=== PATIENT | male | born 1930 | race Caucasian/White ===

== ENCOUNTER 2018-02-24 23:25 | Inpatient (IN) | payer OTHER, BC ==
[~2018-02-24] VITALS: Ht 177.8 cm; Wt 96.2 kg
[~2018-02-24 23:25] MED LIST: ASA81BEC PO; AUGMENTIN 875875 MG PO; CENTRUM SILVER1 EAC4 PO; COUMADIN 3 MG TA3 M1 PO; GABAPENTIN 100100 MG PO; HYDROCODONE PO; LIMBREL PO; LOPRESSOR25 PO; METHOCARBAMOL PO; MIRALAX17 GM PO; NITROSTAT0.4 MG SUBLING; PAXIL10 MG; PROSCAR 5MG TABL5 MG PO; PROTONIX40 M4 PO; ROBAXIN 750 MG750 M1 PO; ROXICODONE5 MG PO; SALSALATE 500M500 MG PO; SIMVASTATIN40 MG PO; TAMSULOSIN HCL0.4 MG PO
[2018-02-24 23:36] VITALS: BP 157/85
[2018-02-25] MEDS ORDERED: GABAPENTIN 100100 MG PO (00:08)
[2018-02-25] MEDS ORDERED: COUMADIN 4 MG TA4 M1 PO (00:09)
[2018-02-25] MEDS ORDERED: COUMADIN 3 MG TA3 M1 PO (00:09)
[2018-02-25 00:10] LABS: ABSOLUTE NEUTROPHILS 3.9 thou/uL (1.4-8.2); BASOPHILS 0.4 % (0.0-2.0); HEMATOCRIT 43.2 % (42.0-52.0); HEMOGLOBIN 13.9 gm/dL (14.0-18.0); LYMPHOCYTES 19.6 % (24.0-44.0); MCH 25.5 pg (26.0-34.0); MCHC 32.1 g/dL (28.0-37.0); MCV 79.4 fL (80.0-100.0); PLATELET COUNT 179 thou/uL (150-400); RBC 5.44 mil/uL (4.50-6.00)
[2018-02-25] MEDS ORDERED: OXYCODONE HCL 55 MG PO (00:10)
[2018-02-25 00:13] LABS: ANION GAP 9 mmol/L (7-16); BUN 18 mg/dL (7-18); CALCIUM 9.3 mg/dL (8.5-10.1); CHLORIDE 105 mmol/L (98-107); CO2 25 mmol/L (21-32); CREATININE 1.2 mg/dL (0.7-1.3); GLUCOSE 108 mg/dL (74-106); POTASSIUM 3.7 mmol/L (3.5-5.1); SODIUM 139 mmol/L (136-145)
[2018-02-25 00:21] LABS: TROPONIN-I <0.06 ng/mL (<0.06)
[2018-02-25 02:39] VITALS: BP 135/89
[2018-02-25 03:30] VITALS: BP 136/89; BP 36/89
--- NOTE | 2018-02-25 03:59 | NUR ---
PT ARRIVED ON UNIT AT APPROX 0305 FROM ED WITH BELONGINGS AND DAUGHTER. PT AOX4, NO C/O PAIN, DENIES CHEST PAIN. VSS, UP STANDBY ASSIST. TELE STRIP PRINTED AND DOCUMENTED. WILL ACKNOWLEDGE AND IMPLEMENT ORDERS. WILL CONTINUE TO MONITOR.
[2018-02-25 05:18] LABS: INR 3.7; PROTIME 38.8 Seconds (9.3-11.4)
--- NOTE | 2018-02-25 07:39 | NUR ---
PT AOX4, VSS, NO C/O PAIN. O2 SATS WNL ON ROOM AIR. NO S/SX OF CARDIAC OR RESP DISTRESS. WILL CONTINUE TO FOLLOW POC.
[2018-02-25 08:15] VITALS: BP 113/74
[2018-02-25 12:20] VITALS: BP 122/77
--- NOTE | 2018-02-25 15:54 | NUR ---
PT IS ALERT AND ORINTED X4. LUNGS ARE CLEAR. V-PACED ON THE ARC AIR OPERATOR. FAMILY AT BEDSIDE FOR SUPPORT. EATING LOW SODIUM DIET AND TOLERATING WELL.. USES URINAL AT BEDSIDE TO VOID. ACTIVE BOWEL SOUNDS X4. ABDOMEN IS ROUND AND SOFT. DENIES ANY PAIN. WILL CONTINUE TO ASSESS AND MONITOR PER NURSING. CALL LIGHT WITHIN REACH IF NEEDS ASSISTANCE
[2018-02-25 20:11] VITALS: BP 140/84
--- NOTE | 2018-02-25 22:14 | EKG ---
[address] [address] ELECTROCARDIOGRAM REPORT Name: JAMEE ASENCIO Room #: 210-P ADM IN M.R.#: [id number] Admission: 02/25/18 Attend Phys: Marlon Crandall Discharge: Date of : [birth year] Report #: [id number] THIS REPORT FOR: //name// [facility] ED Test Date: 2018-02-24 Test Time: 23:48:57 Pat Name: JAMEE ASENCIO Department: Room: 210 Gender: M Human Service Specialist: VIPUL : [id number] Requested By: Vlad Mcbride Order Number: [id number] MD: Memo Barragan Measurements Intervals [place] Rate: 82 P: 65 TN: 178 QRS: -74 QRSD: 193 T: 111 QT: 481 QTc: 562 Interpretive Statements Atrial-sensed ventricular-paced rhythm No further analysis attempted due to paced rhythm Baseline wander in lead(s) V6 No previous ECG available for comparison Electronically Signed On 02-25-2018 22:14:19 PHARMACY INTAKE TECHNICIAN by Memo Barragan [email or web address] <ELECTRONICALLY SIGNED> By: Memo Barragan MD 02/25/18 2214 47 Memo Barragan MD /EPI
--- NOTE | 2018-02-25 23:59 | NUR ---
ASSUMED CARE OF PATIENT AROUND 1900. PATIENT REQUESTS TO SLEEP THROUGH THE NIGHT WITH MINIMAL DISRUPTION. LASIX SCHEDULED FOR 2100, PATIENT REQUESTS TO RECEIVE THIS IN THE MORNING SO HE WILL NOT BE UP ALL NIGHT TO THE BATHROOM. WILL COMMUNICATE THIS WITH THE DISH MAKER. PATIENT WEARING CPAP TO SLEEP. PATIENT IS PROGRESSING TOWARD GOALS, WILL CONTINUE TO MONITOR.
[2018-02-26 03:28] LABS: HEMATOCRIT 41.9 % (42.0-52.0); HEMOGLOBIN 13.2 gm/dL (14.0-18.0); MCH 24.8 pg (26.0-34.0); MCHC 31.4 g/dL (28.0-37.0); MCV 78.8 fL (80.0-100.0); PLATELET COUNT 172 thou/uL (150-400); RBC 5.32 mil/uL (4.50-6.00); RDW 19.8 % (10.5-14.5); WBC 5.6 thou/uL (4.0-11.0)
[2018-02-26 03:38] LABS: INR 3.9; PROTIME 40.4 Seconds (9.3-11.4)
[2018-02-26 03:43] LABS: CALCIUM 9.1 mg/dL (8.5-10.1); CREATININE 1.2 mg/dL (0.7-1.3); POTASSIUM 3.5 mmol/L (3.5-5.1)
[2018-02-26 03:44] VITALS: BP 127/65
[2018-02-26 04:35] LABS: ABSOLUTE NEUTROPHILS 1.9 thou/uL (1.4-8.2); ANISOCYTOSIS 2+; ATYPICAL LYMPHS 10 %
[2018-02-26 04:36] LABS: OVALOCYTES 2+
[2018-02-26 07:38] VITALS: BP 129/88
[2018-02-26 11:15] VITALS: BP 122/80
--- NOTE | 2018-02-26 11:47 | 2DMMODE ---
[facility] [place] [address] 2 D/M-MODE ECHOCARDIOGRAM Name: ELIFJAMEE HERRERA Room #: 210-P ADM IN M.R.#: [id number] Admission: 02/25/18 Attend Phys: Marlon Camp Discharge: Date of : [birth year] Date of Service: 02/26/18 1146 Report #: [id number] THIS REPORT FOR: //name// APPROVED REPORT Study performed: 02/26/2018 09:36:24 EXAM: Comprehensive 2D, Doppler, and color-flow Echocardiogram Patient Location: Bedside Room #: 210 Status: routine BSA: 2.14 HR: 73 bpm BP: 129/88 mmHg Rhythm: Atrial Fibrillation Other Information Study Quality: Adequate Indications Dyspnea Pacemaker AVR Mechanical 2D Dimensions RVDd: 48.13 mm IVSd: 14.24 (7-11mm) LVOT Diam: 23.27 (18-24mm) LVDd: 61.75 mm PWd: 12.99 (7-11mm) Ascending Ao: 32.80 (22-36mm) LVDs: 46.22 (25-40mm) Aortic Root: 40.85 mm IVC: 21.00 mm Volumes Left Atrial Volume (Systole) Single Plane 4CH: 122.45 mL Single Plane 2CH: 82.04 mL LA ESV Index: 61.00 mL/m2 Aortic Valve AoV Peak Mane.: 2.22 m/s AO Peak Gr.: 20.20 mmHg LVOT Max P.59 mmHg AO Mean Gr.: 10.82 mmHg LVOT Mean P.61 mmHg AO V2 Mean: 1.48 m/s LVOT Max V: 0.95 m/s AO V2 VTI: 35.87 cm LVOT Mean V: 0.58 m/s BRYN (VTI): 1.92 cm2 LVOT V1 VTI: 16.21 cm BRYN Vmax: 1.81 cm2 [facility] [place] [address] 2 D/M-MODE ECHOCARDIOGRAM Name: JAMEE ASENCIO Room #: 210-P [facility] IN .R.#: [id number] Admission: 02/25/18 Attend Phys: Marlon Camp Discharge: Date of : [birth year] Date of Service: 02/26/18 1146 Report #: [id number] SV (LVOT): 68.91 mL Pulmonary Valve PV Peak Mane.: 0.89 m/s PV Peak Gr.: 3.14 mmHg Tricuspid Valve TR Peak Mane.: 2.34 m/s TR Peak Gr.: 22.39 mmHg PA Pressure: 32.00 mmHg Left Ventricle Left ventricle is dilated. There is global hypokinesis of the left ventricle. Moderate concentric left ventricular hypertrophy. Left ventricular systolic function is mild to moderately decreased. LVEF is 40-45%. This study is not technically sufficient to allow evaluation of the LV diastolic function. Right Ventricle Right ventricle is dilated. The right ventricular systolic function is normal. Pacemaker lead is present in the right ventricle. Atria Left atrium is dilated. Right atrium is dilated. Aortic Valve Mechanical aortic valve is present. Trace to mild aortic regurgitation. There is no aortic valvular stenosis. Mitral Valve The mitral valve is normal in structure. Mild mitral regurgitation. No evidence of mitral valve stenosis. Tricuspid Valve The tricuspid valve is normal in structure. There is mild tricuspid regurgitation. Estimated PAP 32 mmHg. There is mild pulmonary hypertension. Pulmonic Valve The pulmonary valve is normal in structure. Trace pulmonic regurgitation. Great Vessels The aortic root is normal in size. IVC is dilated and collapses >50% with inspiration. Pericardium [facility] [address] [place] [address] 2 D/M-MODE ECHOCARDIOGRAM Name: JAMEE ASENCIO Yoana Room #: 210-P [facility] IN ..#: [id number] Admission: 02/25/18 Attend Phys: Marlon Camp Discharge: Date of : [birth year] Date of Service: 02/26/18 1146 Report #: [id number] There is no pericardial effusion. <Conclusion> Left ventricle is dilated. LVEF is 40-45%. There is global hypokinesis of the left ventricle. Right ventricle is dilated. Pacemaker lead is present in the right ventricle. Left atrium is dilated. Right atrium is dilated. Mechanical aortic valve is present. Trace to mild aortic regurgitation. The mitral valve is normal in structure. Mild mitral regurgitation. The tricuspid valve is normal in structure. There is mild tricuspid regurgitation. Estimated PAP 32 mmHg. There is mild pulmonary hypertension. There is no pericardial effusion. <ELECTRONICALLY SIGNED> By: Toni Louise MD 02/26/18 1146 1146 1146 Toni Louise MD /INF
[2018-02-26 15:29] VITALS: BP 129/80
[2018-02-26 16:39] VITALS: BP 129/80
== END 2018-02-26 17:50 | disposition home or self-care (01) | DRG 291 ==
LOC: ER 23:25 → 2N 02-25 02:21 → EROBS 02-25 02:21 → 2N 02-25 03:00
PROVIDERS: Emergency Medicine; Family Medicine; Nurse Practitioner Acute Care; ADMIT Hospitalist
DX: I50.23 Acute on chronic systolic (congestive) heart failure (principal); E43 Unspecified severe protein-calorie malnutrition; G89.29 Other chronic pain; Z96.643 Presence of artificial hip joint, bilateral; E78.5 Hyperlipidemia, unspecified; N40.0 Benign prostatic hyperplasia without lower urinary tract symptoms; I25.10 Atherosclerotic heart disease of native coronary artery without angina pectoris; G47.33 Obstructive sleep apnea (adult) (pediatric); M54.9 Dorsalgia, unspecified; Z95.2 Presence of prosthetic heart valve; Z95.0 Presence of cardiac pacemaker; Z79.899 Other long term (current) drug therapy; Z88.8 Allergy status to other drugs, medicaments and biological substances; Z86.73 Personal history of transient ischemic attack (TIA), and cerebral infarction without residual deficits; Z95.5 Presence of coronary angioplasty implant and graft
CPT/HCPCS: 10081

== ENCOUNTER → 2018-04-23 | Outpatient (CLI) | payer OTHER, BC ==
[~2018-04-23] MED LIST changes: +COUMADIN 4 MG TA4 M1 PO; +OXYCODONE HCL 55 MG PO
== END ==
LOC: RAD 14:49
DX: R06.00 Dyspnea, unspecified (principal); Z88.8 Allergy status to other drugs, medicaments and biological substances; Z95.0 Presence of cardiac pacemaker